=== PATIENT | female | born 1960 | race Caucasian/White ===

== ENCOUNTER 2016-03-01 15:24 | Emergency (ER) | payer MEDICARE, MEDICAID ==
[~2016-03-01] VITALS: Ht 167.6 cm; Wt 81.8 kg
[~2016-03-01 15:24] MED LIST: CHOL100043 PO; OXYC10TA8 PO; TIZA4CAP8 PO
[2016-03-01 15:26] VITALS: BP 142/82; PULSE 67; RESP 16; O2SAT 98
--- NOTE | 2016-03-01 15:42 | ED.REPORT ---
HPI-Allergic Reaction Date of Service Mar 01, 2016 ED Provider: Merlin Boland MD Patient is a 55 year old female who presents to the ED from the infusion center for severe abdominal pain that radiates to her chest and back s/p starting a new medication a few days ago. Last night she was awoken at 0100 from the pain and took oxycodone with relief. At 0900 she had another episode of pain and took oxycodone again. during her infusion at 1500 she had another episode of pain so she was sent to the ED. She denies nausea, vomiting, fever, or any other symptoms. She takes oxycodone every 6-8 hours as needed every day. Nursing Notes Stated Complaint: FROM [facility] [place] Chief Complaint: Allergic Reaction Nursing Notes Reviewed: Yes Allergies: Coded Allergies: No Known Drug Allergies (Verified Allergy, Unknown, 03/01/16) Scheduled Cholecalciferol (Vitamin D3) (Vitamin D) 1,000 Unit Tablet 1,000 UNIT PO DAILY Scheduled PRN Tizanidine (Tizanidine) 4 Mg Capsule 4 MG PO Q8H PRN PRN For Pain NTE 3 doses/24hrs oxyCODONE (oxyCODONE) 10 Mg Tablet 10 MG PO Q6H PRN PRN For Pain General Time Seen by MD: 15:41 Chief Complaint Other (Abdominal pain) Hx Obtained From: Patient Arrived By: Walk-in Recent Healthcare: Recent doctor visit Past Medical History Past Medical History TMJ Disorder Hatial hernia GI bleed RA Reports: Stroke, Denies: Cancer, Diabetes mellitus, Hypertension Past Surgical History Reports: Cholecystectomy Family History Heart disease Smoking History Heavy Tobacco Smoker, Former Smoker Social History Drug Use: THC Ambulatory Status Independent Review of Systems Constitutional: Denies: Fever GI: Reports: Abdominal pain, Denies: Nausea, Vomiting Complete sys rev & neg: except as marked. Cardiovascular: Reports: Chest pain Musculoskeletal: Reports: Back pain Physical Exam Initial Vital Signs Vital Signs (First) Date Time Temp Pulse Resp B/P Pulse Ox O2 Delivery O2 Flow Rate FiO2 03/01/16 15:26 36.3 67 16 142/82 98 Room Air Initial VS: Reviewed Head / Eyes: Atraumatic, Normocephalic Neurologic: Alert, Oriented, Nonfocal Psychiatric: Mood/affect normal, Behavior normal, Normal thought content General/Constitutional: Awake, Alert, Well developed Respiratory / Chest: Atraumatic, No respiratory distress Cardiovascular: Heart rate NL, Regular rhythm, Heart sounds NL, Peripheral circulation NL Skin: Color NL, Warm, Dry Abdomen: No guarding Tenderness/Guarding/Rebound: Positive: Tender diffuse Interpretation & Diagnostics Lab Results Interpretation Result Diagram: 03/01/16 1711 03/01/16 1711 Test 03/01/16 17:11 White Blood Count 4.4th/mm3 (3.8-10.1) Red Blood Count 4.03mil/mm3 (3.90-5.20) Hemoglobin 12.1g/dL (12.0-15.6) Hematocrit 36.3% (35.0-46.0) Mean Corpuscular Volume 90.1fL (81-100) Mean Corpuscular Hemoglobin 30.0pg (27.0-35.0) Mean Corpuscular Hemoglobin Concent 33.3% (32.0-37.0) Red Cell Distribution Width 11.7% (12.3-15.4) Platelet Count 169bil/L (150-400) Neutrophils (%) (Auto) 53.6% (40-74) Lymphocytes (%) (Auto) 31.8% (14-46) Monocytes (%) (Auto) 11.9% (4-12) Eosinophils (%) (Auto) 1.8% (0-5) Basophils (%) (Auto) 0.7% (0-3) Sodium Level 142mEq/L (134-144) Potassium Level 4.3mEq/L (3.5-5.2) Chloride Level 107mEq/L (97-108) Carbon Dioxide Level 25mmol/L (18-29) Blood Urea Nitrogen 12mg/dL (6-24) Creatinine 0.64mg/dL (0.57-1.00) Estimat Glomerular Filtration Rate 137mL/min (>59) Glucose Level 96mg/dL (60-99) Calcium Level 8.4mg/dL (8.5-10.1) Magnesium Level 2.0mg/dL (1.6-2.6) Total Bilirubin 0.3mg/dL (0.0-1.2) Aspartate Amino Transf (AST/SGOT) 13U/L (0-50) Alanine Aminotransferase (ALT/SGPT) 8U/L (0-32) Alkaline Phosphatase 53U/L (25-150) Total Protein 6.6g/dL (6.4-8.4) Albumin 3.7g/dL (3.4-5.0) Lipase 39U/L (13-60) ECG Interpretation ECG Interpretation: sinus rate 61 RBBB Time: 16:30 Interpreted by: ED physician X-Ray Chest Interpretation Chest Xray Interpretation: IMPRESSION: No acute cardiopulmonary findings. Dictated by: Carol Hassan M.D. on 03/01/2016 at 16:29 Approved by: Carol Hassan M.D. on 03/01/2016 at 16:29 View: Portable, 1 view Interpretation / Wet Read by: Interpret - Radiologist Discharge & Departure Primary Impression: Abdominal pain Abdominal location: generalized Qualified Code: R10.84 - Generalized abdominal pain Disposition: Home Patient Instructions: Acute Abdominal Pain (ED) Additional Instructions: No dangerous cause for your abdominal pain is discovered. Follow-up with your doctor for further evaluation as needed. Consider not taking the rheumatoid medication as this might be the cause but I recommend that you discuss this with your technical implementation lead. Return to the emergency department for new or worsening symptoms. Referrals: Danny Urena MD (PCP) Scribe Attestation Portions of this note were transcribed by Jorje Cruz. I, Dr. Boland personally performed the history, physical exam and medical decision-making; I reviewed and confirmed the accuracy of the information in the transcribed note. Signed by: Jorje Cruz 03/01/16, 1027 copies to: Danny Urena MD, Kirk H MD Mar 01, 2016 15:42 JORJE CRUZ Mar 01, 2016 16:07
[2016-03-01] MEDS ORDERED: 0.9% Sodium Chloride 1,000 ML IV ONE (16:04)
[2016-03-01] MEDS ORDERED: HYDROcodone-APAP 10-325 mg PO ONE (16:05)
[2016-03-01] MEDS ORDERED: Ondansetron 2 mg/mL 2 mL Inj IVPUSH PRN (16:05)
--- NOTE | 2016-03-01 16:31 | DRSVH ---
PROCEDURE: X-RAY CHEST ONE VIEW, PORTABLE ([id number]) INDICATIONS: abd pain TECHNIQUE: One view of the chest was acquired. COMPARISON: [facility], , XR CHEST 2VW, 02/08/2016, 17:08. FINDINGS: Surgical changes and devices: None. Lungs and pleura: No pleural effusions or pneumothorax. Lungs are clear. Mediastinum: Mediastinal contours appear normal. Heart size is normal. Bones and chest wall: No suspicious bony lesions. Overlying soft tissues appear unremarkable. IMPRESSION: No acute cardiopulmonary findings. Dictated by: Carol Hassan M.D. on 03/01/2016 at 16:29 Approved by: Carol Hassan M.D. on 03/01/2016 at 16:29
[2016-03-01 17:21] LABS: BASOPHILS % (AUTO) 0.7 % (0-3); EOSINOPHILS % (AUTO) 1.8 % (0-5); MONOCYTES % (AUTO) 11.9 % (4-12); Mean Corpuscular Volume 90.1 fL (81-100); NEUTROPHILS % (AUTO) 53.6 % (40-74); Platelet Count 169 bil/L (150-400)
[2016-03-01 18:19] VITALS: BP 143/76; PULSE 57; RESP 18; O2SAT 99
[2016-04-30] MEDS ORDERED: PRE10 PO (13:08)
[2016-04-30] MEDS ORDERED: OXYC5CAP4 PO (13:08)
== END 2016-03-01 18:21 | disposition home or self-care (01) ==
LOC: SED 15:24
DX: R10.84 Generalized abdominal pain (principal); F17.200 Nicotine dependence, unspecified, uncomplicated; F12.10 Cannabis abuse, uncomplicated; Z86.73 Personal history of transient ischemic attack (TIA), and cerebral infarction without residual deficits; Z87.39 Personal history of other diseases of the musculoskeletal system and connective tissue
CPT/HCPCS: 36415; 71010; 80053; 83690; 83735; 85025; 93005; 96360; 96365; 96375; 99285; J0129; J1200; J7030